=== PATIENT | male | born 1960 | race Caucasian/White ===

== ENCOUNTER 2019-04-25 09:12 | Observation (INO) | payer BC, SELFPAY ==
[2019-04-25] VITALS (11 sets, daily range): BP systolic 125–156; BP diastolic 78–92; PULSE 88–122; RESP 15–24; TEMP 36.1–37.6; O2SAT 94–97; BMI 35.6; BMI 34.7
--- NOTE | 2019-04-25 09:39 | RAD_ITS ---
STUDY: X-RAY CHEST REASON FOR EXAM: Male, 59 years old. COUGH, HEMOPTYSIS. 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 COMPARISON: Comparison is made with prior examination dated October 03, 2016. FINDINGS: EKG electrodes are seen. There now is evidence of prior patchy infiltrates in the right upper and right lower lobes. Radiographic follow-up is recommended. Mild increased markings at the left lung base. There is no demonstrated pleural abnormality. Normal size heart. Normal mediastinum and kezia. Normal visualized pulmonary arteries. There is atherosclerotic calcification of the aortic arch with tortuosity. There are diffuse degenerative changes of the visualized thoracic spine. Healed right rib fractures. There is no demonstrated abnormality of the visualized soft tissue structures of the upper abdomen. RAD/Chest PA and Lateral IMPRESSION: Infiltrations in the right upper and right lower lobes. Mild increased markings at the left lung base. Follow-up is recommended. Electronically Signed: Sam Thakur, at 11:06 EST , Service support ,
--- NOTE | 2019-04-25 09:45 | ED.VIS.GEN ---
History of Present Illness Chief Complaint: Cough Informant: Patient, Significant Other Narrative: Patient presents the emergency department with fever cough and hemoptysis. He is on Xarelto for atrial fibrillation. He has not had his morning metoprolol. Patient states that last evening he began to cough very frequently. He notes every few minutes he would cough. This morning around 0630 hours he noticed blood with his phlegm. This has persisted. states they took his temperature at 0830 and he was 102 degrees. He notes associated headache body aches and some rhinorrhea. Past Medical History - Allergies and Home Meds Allergies/Adverse Reactions: Allergies Penicillins Allergy (Verified 04/25/19 09:13) Hives piroxicam [From Feldene] Adverse Reaction (Verified 04/25/19 09:13) Nausea Primary Care Physician: [facility],[place] [Primary Care Provider] - Surgical History: no surgical history Smoking Status: Never smoker - Family History Maternal Family History: Reports: No pertinent history Paternal Family History: Reports: No pertinent history Review of Systems General: Reports: Chills, Fever, Malaise. Denies: Sweats Eyes: Denies: Visual changes - bilaterally, Diplopia ENT: Denies: Rhinorrhea, Sore throat Cardiovascular: Denies: Chest pain, Palpitations Respiratory: Reports: Dyspnea, Cough, Sputum - With blood. Denies: Dyspnea on exertion Gastrointestinal: Reports: Nausea. Denies: Abdominal pain, Vomiting, Diarrhea, Melena, Hematochezia Genitourinary: Denies: Dysuria, Hematuria, Frequency Musculoskeletal: Reports: Myalgias. Denies: Back pain, Extremity Pain Skin: Denies: Rash, Wounds Neurological: Denies: Headache, Weakness, Numbness Psych: Denies: Depression, Anxiety, Suicidal thoughts, Suicidal ideations Endocrine: Reports: Polyuria. Denies: Polydipsia, Heat intolerance, Cold intolerance Hematologic: Reports: Easy bruising, Easy bleeding Physical Exam Vital Signs/Narrative: Vital Signs Temp Pulse Resp BP Pulse Ox 04/25/19 09:15 97 F L 118 H 15 156/88 H 95 Inital Vital Signs reviewed: Yes General: Well nourished, Well developed, No Acute Distress Head: Normocephalic, Atraumatic Eyes: Perrl, EOMI ENT: Moist mucous membranes, No rhinorrhea Neck: Supple, Nontender Cardiovascular: No murmurs, Irregular, Tachycardia Respiratory: No distress, Chest nontender, Rhonchi - Right base, Wheezing Abdomen: Soft, Nontender, Nondistended, Normal bowel sounds Back: Nontender, Normal Inspection Extremities: Nontender, No edema Skin: Normal color, No rash Neurological: Alert, Oriented x3, Cranial nerves II-XII grossly intact, Normal Strength, Normal Sensation Psychological: Normal affect, Normal Mood Diagnostic/Tx/Re-eval - Medical Decision Making Patient received IV fluids, Tylenol, and aerosols. Chest x-ray demonstrates right sided infiltrates. His white count is elevated at 12. After blood cultures were obtained the patient received Rocephin and azithromycin. Patient did expectorate phlegm with some blood. Plan will be admission into the hospital for further care. Patient understands the plan. ED Disposition - Plan for ED Patient: Disposition: Acute Care Hospital [facility] Diagnosis: Pneumonia, Sepsis, Cough with hemoptysis [place] [facility] [[place] [facility] [place]] -
[2019-04-25 09:54] LABS: Absolute Lymphocyte Count 0.72 X10^3/uL (0.83-4.51); Absolute Neutrophil Count 10.5 X10^3/uL (2.0-7.7); Basophil# 0.07 X10^3/uL; Basophil% 0.6 % (0-1); Eosinophil# 0.06 X10^3/uL; Eosinophils% 0.5 % (0-5); Hematocrit 44.4 % (40-54); Hemoglobin 15.4 g/dL (13.0-16.5); Lymphocyte # 0.72 X10^3/ul (4.0); Mean Corp Hgb Conc 34.7 g/dL (32-36); Mean Corpuscular Hgb 30.3 pg (27.0-32.0); Mean Corpuscular Volume 87.4 fL (80-94); Mean Platelet Vol. 9.6 fl (6.2-12.0); Monocyte# 0.55 X10^3/uL; Monocyte% 4.6 % (0-10); NRBC Flagged by Analyzer 0 % (0-5); Neutrophil # 10.53 X10^3/uL (2.7-7.7); Platelet Count 165 K/mm3 (150-450); RBC Distribution Width CV 12.3 % (11.6-14.6); RBC Distribution Width SD 39.4 fl (35.1-43.9); Red Blood Count 5.08 M/mm3 (4.6-6.2)
[2019-04-25] MEDS: Acetaminophen 500 MG Tablet 1000 MG PO (09:57)
[2019-04-25] MEDS: Ondansetron 4 MG/2 ML Vial IV (09:58)
[2019-04-25] MEDS: Metoprolol Tartrate 25 MG Tablet PO ×2 (09:58→23:22)
[2019-04-25] MEDS: 0.9% Normal Saline 1,000 ML 1000 ML IV (09:58)
[2019-04-25 10:09] LABS: ALB/GLOB Ratio 1.1 RATIO (0.9-2.4); AST(SGOT) 18 U/L (15-37); Alanine Aminotransfer ALT/SGPT 36 U/L (16-61); Albumin, Serum 3.7 g/dL (3.2-5.0); Alkaline Phosphatase 39 U/L (45-117); Anion Gap 3 (5-15); BUN 13 mg/dL (7-18); BUN/Creat Ratio 11.7 RATIO (10-20); Calcium,Total 9.2 mg/dL (8.5-10.1); Chloride 109 mmol/L (98-107); Creatinine, Serum 1.11 mg/dL (0.70-1.30); EST Glomerular Filtration Rate 72 mL/min (>60); Est Glom Filt Rate - Afr Amer 87 mL/min (>60); Estimated Creatinine Clearance 79.62 ml/min; Globulin 3.3 g/dL (2.2-4.2); Glucose 193 mg/dL (74-106); Potassium 4.2 mmol/L (3.5-5.1); Sodium Level 139 mmol/L (136-145)
[2019-04-25] MEDS: Ipratropium/Albuterol Sulfate 3 ML AMPUL.NEB INHALATION ×3 (10:10→22:39)
[2019-04-25] MEDS: Albuterol 2.5 MG/3 ML VIAL.NEB. INHALATION ×2 (11:03)
--- NOTE | 2019-04-25 11:10 | NURSING ---
CALLED [facility] TO LET THEM KNOW PATIENT WILL BE ADMITTED. TALKED TO OFELIA IN THE TRANSFER LINE. SHE TOOK INFO AND ASKED ABOUT FLOOR HE WILL BE ADMITTED TO. WAS TOLD NOT SURE AT THIS TIME.
[2019-04-25] MEDS: Ceftriaxone 1 GM/50 ML BAG IV (11:20)
[2019-04-25 11:43] LABS: Lactic Acid 1.3 mmol/L (0.4-1.9)
[2019-04-25 11:47] LABS: International Normalized Ratio 1.5; Prothrombin Time (Protime)PT. 17.7 SECONDS (11.7-14.9)
--- NOTE | 2019-04-25 11:54 | NURSING ---
MED SURG JOPPERI PNEUMONIA
--- NOTE | 2019-04-25 12:02 | NURSING ---
Dr. Emanuel in ED
--- NOTE | 2019-04-25 12:20 | HP.PCM_ITS ---
Problem List (1) Pneumonia Status: Acute (2) Cough with hemoptysis Status: Acute (3) Hyperlipidemia Status: Chronic (4) Type 2 diabetes mellitus Status: Chronic (5) Hypertension Status: Chronic (6) Afib Status: Chronic History of Present Illness Date of Admission: 04/25/19 Chief Complaint: shortness of breath The patient is a 59 year old M who was in his normal state of health until last night, when he started coughing. Today he went to work and felt off, shortness of breath, coughing, weakness. Sent to ER and diagnosed with pneumonia and received azithromycin and ceftriaxone. [] Past Medical History Past Medical History (Chronic Problems): Chronic Problems (This Medical Record has been edited. Action required.) Afib (Chronic) Hyperlipidemia (Chronic) Type 2 diabetes mellitus (Chronic) Hypertension (Chronic) Allergies Penicillins Allergy (Verified 04/25/19 09:13) Hives piroxicam [From Feldene] Adverse Reaction (Verified 04/25/19 09:13) Nausea Home Medications: Ambulatory Orders Medication Instructions Recorded Glimepiride [Amaryl] 2 mg PO BID 10/03/16 Insulin Glargine,Hum.rec.anlog 40 unit SQ DAILY 10/03/16 [Lantus] Metformin HCl 1,000 mg PO DAILY 10/03/16 Methocarbamol [Robaxin] 500 mg PO PRN PRN 10/03/16 Metoprolol Tartrate 25 mg PO BID 10/03/16 Simvastatin 40 mg PO QHS 10/03/16 Losartan Potassium [Cozaar] 25 mg PO DAILY 04/25/19 Xarelto 15 mg PO QHS 04/25/19 Surgical History: no surgical history Psychiatric History: No pertinent psych hx Smoking Status: Never smoker Tobacco Use: Chew - *Family History Maternal History Items: No pertinent history Paternal History Items: No pertinent history Review of Systems Constitutional: Reports: Fever, Malaise, Weakness. Denies: Anorexia, Chills, Night Sweats Eyes: Denies: Blurred vision, Double vision HEENT: Denies: Head Aches, Sinus Congestion, Sinus Drainage Cardiovascular: Denies: Chest Pain, Palpitations Respiratory: Reports: Cough. Denies: Shortness of breath at rest, Sputum production Gastrointestinal: Denies: Abdominal Pain, Nausea, Vomiting Genitourinary: Denies: Dysuria Musculoskeletal: Denies: Joint Pain, Joint Tenderness Skin: Denies: Rash, Wounds Neurological: Denies: Numbness, Tingling, Focal weakness Psychiatric: Denies: Anxiety, Depression Hematologic/ Lymphatic: Denies: Easy Bruising, Easy Bleeding, Hx of blood clot Comment: all review of systems negative except as mentioned above. VTE Information - Inpt Only VTE Present on Admission: No VTE Mechan Device Prophylaxis: SCD's VTE Pharm Prophylaxis ordered?: No Patient Problems: Active and Suspected Problems (This Medical Record has been edited. Action required.) Pneumonia (Acute) Cough with hemoptysis (Acute) - Physical Exam Vitals/I&O's: Vital Signs Temp Pulse Resp BP Pulse Ox 36.9 C 113 H 18 152/92 H 94 04/25/19 11:21 04/25/19 11:21 04/25/19 11:21 04/25/19 11:21 04/25/19 11:21 Oxygen Delivery Method Room Air Weight: 119.295 kg Body Mass Index (BMI) 35.6 Intake and Output for Last 24 Hours 04/23/19 04/24/19 04/25/19 23:59 23:59 23:59 Intake Total 50 / 50 Balance 50 / 50 General: Alert, Cooperative, No apparent distress HEENT: Atraumatic, Normocephalic Oral: Moist Mucosa, No Gingival or Mucosal Lesions/ Ulcerations Neck: No Nodes, Trachea Midline Lungs: - - fine crackles in right lung field Cardiovascular: Regular rate, Regular Rhythm, Normal S1, Normal S2, No murmurs Abdomen: Bowel Sounds Present, Soft, Non Tender, Non-Distended, No Hepato- splenomegaly Extremities: No edema, No Calf Tenderness Skin: No rashes, No breakdown Musculoskeletal: No Tenderness to Palpation of Joints or Extremities, No Muscle Wasting Neurological: Sensory exam intact to light touch and pain, - - no clonus Psych/Mental Status: Normal Affect, Appropriate Microbiology Past 72 Hours 04/25/19 10:10 Mucosa - Nose Influenza Types A,B Direct FA (CAROLE) - Final Laboratory Results 04/25/19 09:45: WBC 12.0 H, RBC 5.08, Hgb 15.4, Hct 44.4, MCV 87.4, MCH 30.3, MCHC 34.7, RDW Std Deviation 39.4, RDW Coeff of Keshia 12.3, Plt Count 165, MPV 9.6, Immature Gran % (Auto) 0.300, Neut % (Auto) 88.0 H, Lymph % (Auto) 6.0 L, [place] % (Auto) 4.6, Eos % (Auto) 0.5, Baso % (Auto) 0.6, Absolute Neuts (auto) 10.5 H, Absolute Lymphs (auto) 0.72 L, Nucleated RBC % 0 04/25/19 09:45: Sodium 139, Potassium 4.2, Chloride 109 H, Carbon Dioxide 27.0, Anion Gap 3 L, BUN 13, Creatinine 1.11, Estim Creat Clear Calc 79.62, Est GFR (MDRD) Af Amer 87, Est GFR (MDRD) Non-Af 72, BUN/Creatinine Ratio 11.7, Glucose 193 H, Calcium 9.2, Total Bilirubin 1.30 H, AST 18, ALT 36, Alkaline Phosphatase 39 L, Total Protein 7.0, Albumin 3.7, Globulin 3.3, Albumin/Globulin Ratio 1.1 04/25/19 09:45: Troponin I < 0.015 04/25/19 11:05: Lactic Acid 1.3 04/25/19 11:30: PT 17.7 H, INR 1.5, APTT 35.0 CXR reviewed: right sided diffuse infiltrate. Assessment/Plan All Active Problems (This Medical Record has been edited. Action required.) Pneumonia (Acute) Cough with hemoptysis (Acute) 1. pneumonia: * presumed pneumococcal * check urinary antigens, sputum cultures * continue azithromycin and ceftriaxone * pulmonary toilet * only met 1/4 SIRS criteria, therefore patient is not septic. 2. hemoptysis * 2/2 pneumonia and rivaroxaban * monitor 3. afib: * hold rivaroxaban given hemoptysis as risks > benefits * continue metoprolol 4. DM2 * continue glimepiride and metformin * ssi * check a1c. 5. VTE prophylaxis: SCDs 6. ACP: DW patient. He wishes to be full code. Code Visit Inpatient E&M: 26339 Init Hosp L3
[2019-04-25 14:00] LABS: Hemoglobin A1c 8.5 % (4.2-6.3)
[2019-04-25] MEDS: Ceftriaxone 1 GM/50 mL Premix x1 IV (14:42)
[2019-04-25 14:50] LABS: Bedside Glucose 140 mg/dL (70-110)
--- NOTE | 2019-04-25 15:03 | CASEMGMT ---
JOANIE SHI Assessment DX: pneumonia Intro role of CM to patient room. Pt is awake, alert and able to participate in assessment. PCP/Demographics verified. Pt states he is independent @ home and plans to return on discharge. Pt has [place] benefits; goes to [facility] clinic. Clinical and Declination to transfer form was faxed to [place] Transfer Line. PCP: [facility], [place] Pharmacy: [facility] Insurance: [place] benefits Prescription benefits: yes LNOK: Living arrangements: pt states he lives independently. No care needs identified. Transportation: drives DME: none DC Plan: home on discharge. JOANIE SHI let pt know to contact cm if concerns re: dc arise. Oly COURTNEY RN ACM
[2019-04-25] MEDS: Glimepiride 2 MG Tablet PO (17:02)
[2019-04-25] MEDS: Insulin Lispro 100 UNIT/ML INSULN.PEN SC (17:04)
[2019-04-25 17:11] LABS: Bedside Glucose 152 mg/dL (70-110)
[2019-04-25] MEDS: guaiFENesin 1,200 MG Tablet 1200 MG PO (23:22)
[2019-04-25] MEDS: Atorvastatin Calcium 20 MG Tablet PO (23:22)
[2019-04-25 23:56] LABS: Bedside Glucose 164 mg/dL (70-110)
[2019-04-26] MEDS: Ipratropium/Albuterol Sulfate 3 ML AMPUL.NEB INHALATION ×3 (03:06→11:24)
[2019-04-26 03:08] VITALS: PULSE 105; RESP 24
[2019-04-26 06:48] LABS: Absolute Lymphocyte Count 1.59 X10^3/uL (0.83-4.51); Basophil# 0.07 X10^3/uL; Basophil% 0.5 % (0-1); Eosinophils% 0.7 % (0-5); Hemoglobin 14.4 g/dL (13.0-16.5); Lymphocyte # 1.59 X10^3/ul (4.0); Lymphocyte % 11.6 % (19-41); Mean Corp Hgb Conc 33.5 g/dL (32-36); Mean Corpuscular Hgb 30.1 pg (27.0-32.0); Mean Corpuscular Volume 89.8 fL (80-94); Monocyte# 0.85 X10^3/uL; Monocyte% 6.2 % (0-10); NRBC Flagged by Analyzer 0 % (0-5); Neutrophil % 80.5 % (47-70); Platelet Count 137 K/mm3 (150-450); RBC Distribution Width CV 12.6 % (11.6-14.6); RBC Distribution Width SD 41.1 fl (35.1-43.9); Red Blood Count 4.79 M/mm3 (4.6-6.2); White Blood Count 13.7 K/mm3 (4.4-11.0)
[2019-04-26 06:57] VITALS: PULSE 88; RESP 18
[2019-04-26 07:02] VITALS: BP 150/91; PULSE 93; RESP 24; TEMP 36.9; O2SAT 99
[2019-04-26 07:06] LABS: Bedside Glucose 138 mg/dL (70-110)
[2019-04-26 07:07] LABS: Anion Gap 4 (5-15); BUN 16 mg/dL (7-18); BUN/Creat Ratio 14.7 RATIO (10-20); Calcium,Total 8.9 mg/dL (8.5-10.1); Chloride 110 mmol/L (98-107); Creatinine, Serum 1.09 mg/dL (0.70-1.30); EST Glomerular Filtration Rate 74 mL/min (>60); Est Glom Filt Rate - Afr Amer 89 mL/min (>60); Estimated Creatinine Clearance 81.08 ml/min; Glucose 136 mg/dL (74-106); Potassium 3.8 mmol/L (3.5-5.1); Sodium Level 141 mmol/L (136-145)
[2019-04-26] MEDS: Glimepiride 2 MG Tablet PO (08:27)
[2019-04-26] MEDS: Acetaminophen 325 MG Tablet 650 MG PO (08:27)
[2019-04-26] MEDS: 0.9% Saline Lock 10 ML Syringe IV (09:31)
[2019-04-26 09:34] VITALS: PULSE 96
[2019-04-26] MEDS: Metoprolol Tartrate 25 MG Tablet PO (09:34)
[2019-04-26] MEDS: guaiFENesin 1,200 MG Tablet 1200 MG PO (09:34)
[2019-04-26] MEDS: Losartan Potassium 25 MG Tablet PO (09:35)
[2019-04-26 11:24] VITALS: PULSE 89; RESP 16
--- NOTE | 2019-04-26 11:30 | DCINST_ITS ---
- Discharge Diagnoses Current Active Problems: Current Active and Chronic Problems (This Medical Record has been edited. Action required.) Pneumonia (Acute) Cough with hemoptysis (Acute) Afib (Chronic) Sepsis (Acute) You will use the following diet at home:: No restrictions Your food should be the consistency of: Regular Your liquids should be the consistency of: Regular/Thin Discharge Activity: Return to Normal Activity Call your doctor if you observe: Fever of 101 or Higher, Shortness of breath, - - coughing up blood. Allergies/Adverse Reactions: Allergies Penicillins Allergy (Verified 04/25/19 09:13) Hives piroxicam [From Feldene] Adverse Reaction (Verified 04/25/19 09:13) Nausea Medications to take at Discharge Glimepiride [Amaryl] 2 mg PO BID 10/03/16 Insulin Glargine,Hum.rec.anlog [Lantus] 40 unit SQ DAILY 10/03/16 Metformin HCl 1,000 mg PO DAILY 10/03/16 Methocarbamol [Robaxin] 500 mg PO QMONTH PRN 10/03/16 Metoprolol Tartrate 25 mg PO BID 10/03/16 Simvastatin 40 mg PO QHS 10/03/16 Losartan Potassium [Cozaar] 25 mg PO DAILY 04/25/19 Pantoprazole Sodium [Protonix] 20 mg PO DAILY 04/25/19 Guaifenesin [Mucinex] 1,200 mg PO BID #10 tab 04/26/19 Levofloxacin [Levaquin] 750 mg PO DAILY #5 tab 04/26/19 Xarelto 15 mg PO QHS #0 04/26/19 The following prescriptions were given: Levofloxacin [Levaquin] 750 mg PO DAILY #5 tab Transmission Status: Pending to [id number] Guaifenesin [Mucinex] 1,200 mg PO BID #10 tab Transmission Status: Pending to [id number] Primary Care Physician: [facility] [Primary Care Provider] - Within 1 Week Test Results: Test results from this visit will be discussed in further detail at your follow- up appointment, if applicable. Proposed Discharge Date: 04/26/19
--- NOTE | 2019-04-26 11:31 | DS.PCM_ITS ---
Discharge Date and Diagnosis - Problem List Patient Problems: Active and Suspected Problems (This Medical Record has been edited. Action required.) Pneumonia (Acute) Cough with hemoptysis (Acute) Sepsis (Acute) Date of Admission: 04/25/19 Date of Discharge: 04/26/19 - Primary Discharge Diagnosis Active and Suspected Problems (This Medical Record has been edited. Action required.) Pneumonia (Acute) Cough with hemoptysis (Acute) Sepsis (Acute) - Secondary Discharge Diagnosis Chronic Problems (This Medical Record has been edited. Action required.) Afib (Chronic) Hyperlipidemia (Chronic) Type 2 diabetes mellitus (Chronic) Hypertension (Chronic) Hospital Course and Treatment Imaging Results: Clinical Impression(s) from Imaging Studies Chest X-Ray 04/25/19 09:39 IMPRESSION: Infiltrations in the right upper and right lower lobes. Mild increased markings at the left lung base. Follow-up is recommended. Electronically Signed: Sam Blaze, at 11:06 EST , Service support , Operations: None Procedures: None Summary of Care Provided: The patient is a 59 year old M presents with coughing, shortness of breath and hemoptysis. Patient was found to have pneumonia. Patient was started on azithromycin as well as ceftriaxone in the emergency room. Patient's as rivaroxaban was held. Patient had some scant dried blood that he coughed up today but otherwise is feeling better. Discussed with the patient about going home versus being observed for another day. Patient preserved prefers to be discharged to home. Patient advised to hold off on his rivaroxaban for 2 more days and then to resume. Patient be discharged with levofloxacin. The hemoptysis was felt to be due to the pneumonia but also being on rivaroxaban. [] Patient Problems: Active and Suspected Problems (This Medical Record has been edited. Action required.) Pneumonia (Acute) Cough with hemoptysis (Acute) Sepsis (Acute) - Physical Exam Vitals/I&O's: Vital Signs Temp Pulse Resp BP Pulse Ox 36.9 C 96 24 H 150/91 H 99 04/26/19 07:02 04/26/19 09:34 04/26/19 07:02 04/26/19 07:02 04/26/19 07:02 Oxygen Delivery Method Room Air Weight: 116.165 kg Body Mass Index (BMI) 34.7 Intake and Output for Last 24 Hours 04/24/19 04/25/19 04/26/19 23:59 23:59 23:59 Intake Total 1595 / 1845 300 / 300 Balance 1595 / 1845 300 / 300 General: Alert, No apparent distress HEENT: Atraumatic, Normocephalic Oral: Moist Mucosa, No Gingival or Mucosal Lesions/ Ulcerations Neck: No Nodes, Thyroid Normal Size and Texture Lungs: Clear to auscultation, Normal air movement, No rhonchi, No wheeze, No rales Cardiovascular: Regular rate, Regular Rhythm, Normal S1, Normal S2, No murmurs Microbiology Past 72 Hours 04/25/19 14:30 Urine, Clean Catch Streptococcus pneumoniae Antigen (M - Final 04/25/19 14:30 Urine, Clean Catch Legionella Antigen - Final 04/25/19 10:10 Mucosa - Nose Influenza Types A,B Direct FA (CAROLE) - Final Laboratory Results 04/25/19 09:45: Troponin I < 0.015 04/25/19 09:45: Hemoglobin A1c 8.5 H 04/25/19 11:05: Lactic Acid 1.3 04/25/19 11:30: PT 17.7 H, INR 1.5, APTT 35.0 04/25/19 14:41: POC Glucose 140 H 04/25/19 17:01: POC Glucose 152 H 04/25/19 23:45: POC Glucose 164 H 04/26/19 06:14: WBC 13.7 H, RBC 4.79, Hgb 14.4, Hct 43.0, MCV 89.8, MCH 30.1, MCHC 33.5, RDW Std Deviation 41.1, RDW Coeff of Keshia 12.6, Plt Count 137 L, MPV 10.0, Immature Gran % (Auto) 0.500, Neut % (Auto) 80.5 H, Lymph % (Auto) 11.6 L, [place] % (Auto) 6.2, Eos % (Auto) 0.7, Baso % (Auto) 0.5, Absolute Neuts (auto) 11.0 H, Absolute Lymphs (auto) 1.59, Nucleated RBC % 0 04/26/19 06:14: Sodium 141, Potassium 3.8, Chloride 110 H, Carbon Dioxide 27.0, Anion Gap 4 L, BUN 16, Creatinine 1.09, Estim Creat Clear Calc 81.08, Est GFR (MDRD) Af Amer 89, Est GFR (MDRD) Non-Af 74, BUN/Creatinine Ratio 14.7, Glucose 136 H, Calcium 8.9 04/26/19 07:01: POC Glucose 138 H Current Medications Acetaminophen (Tylenol) 650 mg PO Q6H PRN PRN PRN Reason: Pain Score 1-10/Temp > 100.7 F Last Admin: 04/26/19 08:27 Dose: 650 mg Documented by: Albuterol Sulfate (Ventolin Aerosols) 2.5 mg INHALATION Q2H PRN PRN PRN Reason: Shortness of Breath/Wheezing Albuterol/Ipratropium (Duoneb) 3 ml INHALATION Q4H.RT [facility] Last Admin: 04/26/19 11:24 Dose: 3 ml Documented by: Atorvastatin Calcium (Lipitor) 20 mg PO QHS [facility] Last Admin: 04/25/19 23:22 Dose: 20 mg Documented by: [facility] (A[facility]l) [facility] Last Admin: 04/26/19 08:27 Dose: 2 mg Documented by: Glucagon () 1 mg IM .X1 PRN PRN Reason: Hypoglycemia Guaifenesin (Mucinex) 1,200 mg PO BID [facility] Last Admin: 04/26/19 09:34 Dose: 1,200 mg Documented by: Ceftriaxone Sodium 2 gm/ (Sodium Chloride) 50 mls @ 100 mls/hr IV Q24 [facility] Stop: 05/03/19 10:01 Last Admin: 04/26/19 09:30 Dose: 100 mls/hr Documented by: Azithromycin 500 mg/ Dextrose 255 mls @ 250 mls/hr IV Q24 [facility] Stop: 05/01/19 10:01 Last Admin: 04/26/19 10:05 Dose: 250 mls/hr Documented by: Dextrose (Dextrose 10%-Water) 250 mls @ 999 mls/hr IV .Q16M PRN; Protocol PRN Reason: HYPOGLYCEMIA Sodium Chloride () 250 mls @ 15 mls/hr IV .[id number] PRN PRN Reason: Saline Flush Sodium Chloride () 250 mls @ 15 mls/hr IV .[id number] PRN PRN Reason: Additional IVPB Infusion Insulin Glargine (Lantus (Bkc)) 40 units SC DAILY [facility] Last Admin: 04/26/19 09:35 Dose: 40 u Documented by: Insulin Human Lispro (Humalog Kwikpen (Bkc)) 0 unit SC TIDAC [facility]; Protocol Last Admin: 04/26/19 07:01 Dose: Not Given Documented by: Losartan Potassium (Cozaar) 25 mg PO DAILY [facility] Last Admin: 04/26/19 09:35 Dose: 25 mg Documented by: Methocarbamol (Robaxin) 500 mg PO DAILY PRN PRN PRN Reason: Pain Score 1-10/10 Metoprolol Tartrate (Lopressor (Beta Mayra)) 25 mg PO BID [facility] Last Admin: 04/26/19 09:34 Dose: 25 mg Documented by: Sodium Chloride () 10 - 40 ml IV UD PRN PRN Reason: SALINE FLUSH Last Admin: 04/26/19 09:31 Dose: 10 ml Documented by: Discharge Diet: No Restrictions Discharge Activity: Return to Normal Activity Call your doctor if you observe: Fever of 101 or Higher, Shortness of breath, - - coughing up blood. Home Medications: Medications to take at Discharge Glimepiride [Amaryl] 2 mg PO BID 10/03/16 Insulin Glargine,Hum.rec.anlog [Lantus] 40 unit SQ DAILY 10/03/16 Metformin HCl 1,000 mg PO DAILY 10/03/16 Methocarbamol [Robaxin] 500 mg PO QMONTH PRN 10/03/16 Metoprolol Tartrate 25 mg PO BID 10/03/16 Simvastatin 40 mg PO QHS 10/03/16 Losartan Potassium [Cozaar] 25 mg PO DAILY 04/25/19 Pantoprazole Sodium [Protonix] 20 mg PO DAILY 04/25/19 Guaifenesin [Mucinex] 1,200 mg PO BID #10 tab 04/26/19 Levofloxacin [Levaquin] 750 mg PO DAILY #5 tab 04/26/19 Xarelto 15 mg PO QHS #0 04/26/19 Following Prescrptions Were Given to Patient: Levofloxacin [Levaquin] 750 mg PO DAILY #5 tab Transmission Status: Pending to [facility]/pharmacy #[id number] Guaifenesin [Mucinex] 1,200 mg PO BID #10 tab Transmission Status: [id number] [Primary [facility] Provider] - Within 1 Week Disposition: Home Minutes spent on discharge:: 28 Patient Condition:: Good Medical Necessity - Tobacco Use Smoking Status: Never smoker Tobacco Use: Chew Meaningful Use Info Meaningful Use Diagnoses (Choose all that apply): None applicable Code Visit Inpatient E&M: 48290 Disch Hosp
--- NOTE | 2019-04-26 11:34 | PCM.WORK.EX ---
Work/School Excuse Work/School Excuse for:: Patient Please excuse this person from:: Work From: 04/25/19 through: 04/26/19 Restrictions: Other - may return to normal duties on 04/28/2019
[2019-04-26 12:20] LABS: Bedside Glucose 282 mg/dL (70-110)
[2019-04-26] MEDS: Insulin Lispro 100 UNIT/ML INSULN.PEN SC (12:20)
[2019-04-26 13:36] VITALS: BP 131/90; PULSE 98; PULSE 99; RESP 16; RESP 18; TEMP 36.8; O2SAT 98
[2019-04-26] MEDS: Albuterol 2.5 MG/3 ML VIAL.NEB. INHALATION (13:36)
== END 2019-04-26 13:49 | disposition home or self-care (01) | DRG 194 ==
LOC: ED 11:13 → MS3 06-19 15:53
PROVIDERS: Emergency Provider Emergency Medicine
DX: J18.9 Pneumonia, unspecified organism (principal); R04.2 Hemoptysis; D68.32 Hemorrhagic disorder due to extrinsic circulating anticoagulants; E11.9 Type 2 diabetes mellitus without complications; T45.515A Adverse effect of anticoagulants, initial encounter; E78.5 Hyperlipidemia, unspecified; I10 Essential (primary) hypertension; Z79.4 Long term (current) use of insulin; I48.20 Chronic atrial fibrillation, unspecified; Z79.899 Other long term (current) drug therapy; Z79.01 Long term (current) use of anticoagulants
CPT/HCPCS: 36415; 71046; 80048; 80053; 82962; 83036; 83605; 84484; 85025; 85610; 85730; 87040; 87070; 87205; 87449; 87804; 94640; 96361; 96365; 96366; 96367; 96375; 99218; 99285; J7030; A4216; G0378; J0696; J2405

== ENCOUNTER 2020-08-01 14:56 | Emergency (ER) | payer BC, SELFPAY ==
[2019-04-25 13:14] VITALS: BMI 34.7
[2020-08-01 14:56] VITALS: BP 156/92; PULSE 129; RESP 16; TEMP 36.8; O2SAT 96; BMI 34.4
--- NOTE | 2020-08-01 15:24 | CT_ITS ---
EXAM: CT ABDOMEN AND PELVIS WITH INTRAVENOUS CONTRAST CLINICAL INDICATION: Nausea for 2 weeks with rectal pain, dizziness TECHNIQUE: Helically acquired images were obtained of the abdomen and pelvis with intravenous contrast. This CT exam was performed using one or more of the following dose reduction techniques: automated exposure control, adjustment of the mA and/or kV according to patient size, and/or use of iterative reconstruction technique. This report was created using [employer] report generation technology. Oral contrast was administered. Coronal and sagittal reformatted images were created and reviewed. CONTRAST: 100mL Isovue-370 COMPARISON: None. FINDINGS: LOWER THORAX: Patchy localized infiltrate involving the bilateral lower lobes. Although nonspecific (and not completely evaluated), pneumonia including COVID type should be considered. No cardiomegaly. No significant pericardial effusion. ABDOMEN: LIVER: Unremarkable. Homogeneous. No focal mass. GALLBLADDER AND BILE DUCTS: Unremarkable. No calcified gallstones. No gallbladder distention or wall edema. No intra- or extrahepatic biliary ductal dilation. PANCREAS: Unremarkable. No focal cystic or solid mass. SPLEEN: Granulomatous calcifications of the spleen. ADRENALS: Unremarkable. No nodules. KIDNEYS AND URETERS: Unremarkable. Normal renal size and position. No hydronephrosis. STOMACH AND BOWEL: Unremarkable. No stomach or bowel distention. No focal inflammatory change. PELVIS: APPENDIX: No evidence of acute appendicitis. BLADDER: Nondistended urinary bladder. REPRODUCTIVE: Vas deferens calcifications associated with diabetes mellitus. ABDOMEN and PELVIS: INTRAPERITONEAL SPACE: Unremarkable. No ascites or other fluid collection. No free air. BONES/JOINTS: Degenerative changes of the lumbar spine. No suspicious lytic or blastic abnormality. SOFT TISSUES: Unremarkable. No discrete abdominal or pelvic wall hernia. VASCULATURE: Atherosclerosis of the abdominal aorta and iliac arteries. Abdominal aorta is non-dilated. LYMPH NODES: Calcified lymph nodes in the bilateral kezia. CT/Abdomen/Pelvis WITH Contrast IMPRESSION: 1. No acute inflammatory process or bowel obstruction within the abdomen/pelvis. 2. Patchy localized infiltrate involving the bilateral lower lobes. Although nonspecific (and not completely evaluated), pneumonia including COVID type should be considered. Electronically Signed: Param Henley MD (Brooks) at 17:13 EDT , Service support ,
--- NOTE | 2020-08-01 15:25 | EX.ED.DYSGE1 ---
HPI History of Present Illness Chief Complaint: General Illness Detail of Chief Complaint: Patient with rectal pain for for 5 days Informant: patient Narrative Narrative: Patient complains of pain in his rectum for for 5 days. He denies any masses. He denies any blood in his stool or black tarry stool. Patient had a fever up to 1016 yesterday. Patient also is been having intermittent headaches for several weeks as well as bilateral ear pain. Patient is a diabetic. Patient denies any falls or head injuries. Patient states that somebody next to him at work tested positive for Covid recently. He has minimal cough. He denies body aches. Patient denies urinary symptoms. [facility] Medical History (Updated 08/01/20 @ 18:[address] Shawn Lynn, ) Atrial fibrillation COPD (chronic obstructive pulmonary disease) CPAP (continuous positive airway pressure) dependence Diabetes DVT (deep venous thrombosis) Hyperlipidemia Hypertension Kidney stones Sleep apnea Home Medications Lantus U-100 Insulin 40 unit SQ DAILY 10/03/16 [History Last Taken 10/02/16 23:00] glimepiride 2 mg PO BID 10/03/16 [History Last Taken 10/03/16 10:15] metformin 1,000 mg PO DAILY 10/03/16 [History Last Taken 10/03/16 10:15] methocarbamol 500 mg PO QMONTH PRN 10/03/16 [History Last Taken Unknown] metoprolol tartrate 25 mg PO BID 10/03/16 [History Last Taken 10/03/16 10:15] simvastatin 40 mg PO QHS 10/03/16 [History Last Taken 10/02/16 23:00] losartan 25 mg PO DAILY 04/25/19 [History Last Taken Unknown] pantoprazole 20 mg PO DAILY 04/25/19 [History Last Taken Unknown] Xarelto 15 mg PO QHS #0 04/26/19 [Rx Last Taken Unknown] guaifenesin 1,200 mg PO BID #10 tab 04/26/19 [Rx Last Taken Unknown] levofloxacin 750 mg PO DAILY #5 tab 04/26/19 [Rx Last Taken Unknown] Allergy/AdvReac Type Severity Reaction Status Date / Time Penicillins Allergy Hives Verified 04/25/19 09:13 piroxicam [From Feldene] AdvReac Nausea Verified 04/25/19 09:13 Social History (System 10/31/18 @ 15:00 by Yin Glass) Smoking Status: Never smoker ROS ROS ED Constitutional Constitutional ED: Reports systems reviewed and no addt'l complaints, except as documented; Denies body ache(s), change in weight or chills Eyes Eyes: Denies acute decrease in peripheral vision, change in vision, double vision or loss of vision ENT ENT ED: Reports none and ear pain; Denies lip swelling, loss taste/smell, neck pain, otalgia or sore throat Cardiovascular Cardiovascular: Reports none; Denies abdominal pain, chest pain with activity, leg edema, lightheadedness, palpitations, rapid heart rate or syncope Respiratory/Chest Respiratory/Chest: Reports none; Denies change in mental status, dry cough, dyspnea, hemoptysis, shortness of breath at rest or shortness of breath with exertion Gastrointestinal Gastrointestinal: Reports none, abdominal pain, nausea and other Details: Rectal pain ; Denies change in stool character, diarrhea, hematemesis, hematochezia, melena, rectal bleeding or vomiting Genitourinary Genitourinary ED: Reports none; Denies abdominal discomfort, anuria, dysuria, genital pain or polyuria Musculoskeletal Musculoskeletal: Reports none; Denies arthralgias, back pain, difficulty walking, extremity pain, muscle weakness or myalgias Integumentary Reports none; Denies abscess or rash Neurologic Neurologic: Reports none and headache(s); Denies abnormal gait, confusion, focal weakness, frequent falls, loss of vision, numbness, paresthesias, radicular pain, vertigo or weakness Psychiatric Psychiatric: Reports systems reviewed and no addt'l complaints, except as documented and none; Denies behavioral changes, confusion, difficulty concentrating, hallucinations, suicidal ideation, tactile hallucinations or visual hallucinations Endocrine Endocrinology: Denies none, cold intolerance, excessive sweating, fatigue or heat intolerance Hematologic/Lymphatic Hematologic/Lymphatic: Reports none; Denies anemia, easy bleeding or easy bruising Allergic/Immunologic Allergic/Immunologic ED: Denies as per HPI, none, lip swelling, mouth swelling, throat swelling, tongue swelling or hives EXAM Physical Exam Const Vital Signs: 08/01/20 14:56 08/01/20 16:09 08/01/20 17:12 Temperature 98.2 F Temperature Source Temporal Pulse Rate 129 H 117 H Respiratory Rate 16 26 H Respiratory Effort Normal Non-Labored Respiratory Pattern Normal Blood Pressure 156/92 H 176/84 H Blood Pressure Mean 113 114 Pulse Ox 96 93 Oxygen Delivery Method Room Air Room Air Positive well nourished and well developed General Appearance ED: well developed and NAD HEENT Reports TM's clear and moist mucous membranes normocephalic and atraumatic; Negative for trauma or tenderness Tympanic Membrane ED: Yes TM's clear Eyes PERRL and EOMs intact bilaterally General Eye ED: Negative for pale conjunctiva or scleral icterus Neck no lymphadenopathy, supple and no JVD General: Negative for tenderness Chest Wall inspection of chest normal and palpation of chest normal Chest: Negative for tenderness Resp normal respiratory effort and clear to auscultation bilaterally Effort and Inspection: Negative for respiratory distress or pain with movement Auscultation: Negative for rhonchi, wheezes or diminished lung sounds Cardio regular rate, regular rhythm, S1 normal heart sound, S2 normal heart sound and no murmurs Peripheral Pulses: pulses 2+ throughout GI normal to inspection, nondistended, normoactive bowel sounds, soft to palpation, non-tender, non-distended and no masses GI Narrative: Patient with mild diffuse abdominal tenderness especially over the suprapubic region. No rebound, rigidity, or peritoneal signs. Rectal exam performed I do not appreciate any masses or fissures. He had brown stool in the rectal vault. Palpation: tender Back/Spine no CVA tenderness and no thoracic nor lumbar tenderness Extremity normal to inspection General Extremety ED: Negative for edema General Extremity: Negative for edema Neuro oriented x3, CN's II-XII intact bilaterally, no sensory deficits noted and gait normal Sensorium / Orientation: awake, alert, oriented to person, oriented to place and oriented to time Motor Exam: strength 5/5 throughout and strength abnormal Psych mental status grossly normal Skin no rashes or lesions noted and no wounds MDM MDM MDM Narrative Medical decision making narrative: Patient's labs and imaging unremarkable. Etiology of his rectal pain is unclear. He is advised to follow-up with his primary care physician in potentially had make arrangements for colonoscopy. Patient was found to have COVID-19. He will be referred for monoclonal antibody infusion therapy. Patient advised to return if increasing shortness of breath or condition should worsen anyway. Lab Data Attestation: I reviewed the patient's lab results. Labs: Laboratory Results - last 24 hr 08/01/20 08/01/2008/01/21 16:00 16:00 16:00 WBC 5.6 RBC 5.48 Hgb 16.3 Hct 49.6 MCV 90.5 MCH 29.7 MCHC 32.9 RDW Std Deviation 41.8 RDW Coeff of [place] 12.6 Plt Count 129 L MPV 9.6 Immature Gran % (Auto) 0.400 Neut % (Auto) 74.3 H Lymph % (Auto) 18.0 L [place] % (Auto) 6.7 Eos % (Auto) 0.2 Baso % (Auto) 0.4 Absolute Neuts (auto) 4.1 Absolute Lymphs (auto) 1.00 Nucleated RBC % 0 Sodium 137 Potassium 3.9 Chloride 101 Carbon Dioxide 30.0 Anion Gap 6 BUN 12 Creatinine 1.11 Estim Creat Clear Calc 78.65 Est GFR (MDRD) Af Amer 87 Est GFR (MDRD) Non-Af 72 BUN/Creatinine Ratio 10.8 Glucose 156 H Lactic Acid 1.3 Calcium 8.9 Total Bilirubin 0.80 AST 21 ALT 29 Alkaline Phosphatase 36 L Total Protein 7.4 Albumin 3.5 Globulin 3.9 Albumin/Globulin Ratio 0.9 Urine Color Urine Clarity Urine pH Ur Specific [place] Urine Protein Urine Glucose (UA) Urine Ketones Urine Occult Blood Urine Nitrite Urine Bilirubin Urine Urobilinogen Ur Leukocyte Esterase Urine RBC Urine WBC Ur Squamous Epith Cells Urine Bacteria Urine Mucus 08/01/20 16:25 WBC RBC Hgb Hct MCV MCH MCHC RDW Std Deviation RDW Coeff of [place] Plt Count MPV Immature Gran % (Auto) Neut % (Auto) Lymph % (Auto) [place] % (Auto) Eos % (Auto) Baso % (Auto) Absolute Neuts (auto) Absolute Lymphs (auto) Nucleated RBC % Sodium Potassium Chloride Carbon Dioxide Anion Gap BUN Creatinine Estim Creat Clear Calc Est GFR (MDRD) Af Amer Est GFR (MDRD) Non-Af BUN/Creatinine Ratio Glucose Lactic Acid Calcium Total Bilirubin AST ALT Alkaline Phosphatase Total Protein Albumin Globulin Albumin/Globulin Ratio Urine Color Yellow Urine Clarity Sl. Cloudy Urine pH 5.0 Ur Specific [place] 1.020 Urine Protein 30 H Urine Glucose (UA) 100 H Urine Ketones Negative Urine Occult Blood 10 H Urine Nitrite Negative Urine Bilirubin Negative Urine Urobilinogen 1 H Ur Leukocyte Esterase Negative Urine RBC 0-5 SEEN Urine WBC 0 SEEN Ur Squamous Epith Cells 0-5 SEEN Urine Bacteria RARE Urine Mucus 0 SEEN Radiography Diagnostic Testing: Radiology Impression Abdomen/Pelvis CT 08/01/20 15:24 IMPRESSION: 1. No acute inflammatory process or bowel obstruction within the abdomen/pelvis. 2. Patchy localized infiltrate involving the bilateral lower lobes. Although nonspecific (and not completely evaluated), pneumonia including COVID type should be considered. Electronically Signed: Param Henley MD (Brooks) at 17:13 EDT , Service support , EKG Initial EKG: Comments: Atrial fibrillation with a ventricular rate of 113 bpm with no acute ST segment changes. Discharge Plan Triage Chief Complaint: General Illness ED Provider: Shawn Lynn Dx/Rx/DC Orders Clinical Impression: COVID-19 Instructions: Coronavirus Disease 2019 (COVID-19): Overview Prescriptions: No Action Lantus U-100 Insulin 100 UNIT/ML solution 40 unit SQ DAILY RF: 0 metoprolol tartrate 25 MG tablet 25 mg PO BID RF: 0 methocarbamol 500 MG tablet 500 mg PO QMONTH PRN (Reason: pain) RF: 0 metformin 500 MG tablet 1,000 mg PO DAILY RF: 0 simvastatin 40 MG tablet 40 mg PO QHS RF: 0 glimepiride 2 MG tablet 2 mg PO BID RF: 0 losartan 25 MG tablet 25 mg PO DAILY RF: 0 pantoprazole 20 MG tablet 20 mg PO DAILY RF: 0 guaifenesin 1,200 MG tablet 1,200 mg PO BID Qty: 10 RF: 0 levofloxacin 750 MG tablet 750 mg PO DAILY Qty: 5 RF: 0 Xarelto 15 mg PO QHS Qty: 0 RF: 0 [facility] Referrals: [facility] [Primary Care Provider] - 5-7 Days Disposition Disposition: Home, self care
[2020-08-01 16:22] LABS: Absolute Neutrophil Count 4.1 X10^3/uL (2.0-7.7); Basophil# 0.02 X10^3/uL; Basophil% 0.4 % (0-1); Eosinophil# 0.01 X10^3/uL; Eosinophils% 0.2 % (0-5); Hematocrit 49.6 % (40-54); Hemoglobin 16.3 g/dL (13.0-16.5); Mean Corp Hgb Conc 32.9 g/dL (32-36); Mean Corpuscular Hgb 29.7 pg (27.0-32.0); Mean Corpuscular Volume 90.5 fL (80-94); Mean Platelet Vol. 9.6 fl (6.2-12.0); Monocyte# 0.37 X10^3/uL; Monocyte% 6.7 % (0-10); NRBC Flagged by Analyzer 0 % (0-5); Neutrophil # 4.13 X10^3/uL (2.7-7.7); Neutrophil % 74.3 % (47-70); Platelet Count 129 K/mm3 (150-450); RBC Distribution Width CV 12.6 % (11.6-14.6); RBC Distribution Width SD 41.8 fl (35.1-43.9); Red Blood Count 5.48 M/mm3 (4.6-6.2); White Blood Count 5.6 K/mm3 (4.4-11.0)
[2020-08-01 16:30] LABS: Mucous, Urine 0 SEEN /hpf (<or=2+); White Blood Cells 0 SEEN /hpf (0-5)
[2020-08-01 16:31] LABS: Color, Urine Yellow (Yellow); Glucose, Dipstick 100 mg/dl (Normal); Ketone-Dipstick Negative (Negative); Leukocyte Esterase-Dipstick Negative /ul (Negative); Nitrite-Dipstick Negative (Negative); Occult Blood-Urine 10 /ul (Negative); Protein-Dipstick 30 mg/dl (Negative); Urine Bilirubin Dipstick Negative (Negative); Urine Clarity Sl. Cloudy (Clear); Urine Urobilinogen 1 mg/dl (Normal)
--- NOTE | 2020-08-01 16:33 | EKG12_ITS ---
Test Reason : TACHY Blood Pressure : / mmHG Vent. Rate : 113 BPM Atrial Rate : 147 BPM P-R Int : 000 ms QRS Dur : 078 ms QT Int : 336 ms P-R-T Axes : 000 009 -01 degrees QTc Int : 460 ms Atrial fibrillation Abnormal ECG Confirmed by ELY LEZAMA, BARBARA ([id number]), medical transcription editor ALYSSA PARRISH ([id number]) on 08/04/2020 12:47:07 PM Referred By: TATY Confirmed By:BARBARA GRAVES MD
[2020-08-01 16:37] LABS: Bacteria RARE /hpf (None Seen); Red Blood Cells-Urine 0-5 SEEN /hpf (0-5); Squamous Epithelial Cells - UA 0-5 SEEN /hpf (0-5)
[2020-08-01 16:40] LABS: ALB/GLOB Ratio 0.9 RATIO (0.9-2.4); AST(SGOT) 21 U/L (15-37); Alanine Aminotransfer ALT/SGPT 29 U/L (16-61); Albumin, Serum 3.5 g/dL (3.2-5.0); Alkaline Phosphatase 36 U/L (45-117); Anion Gap 6 (5-15); BUN 12 mg/dL (7-18); BUN/Creat Ratio 10.8 RATIO (10-20); Calcium,Total 8.9 mg/dL (8.5-10.1); Chloride 101 mmol/L (98-107); Creatinine, Serum 1.11 mg/dL (0.70-1.30); EST Glomerular Filtration Rate 72 mL/min (>60); Est Glom Filt Rate - Afr Amer 87 mL/min (>60); Estimated Creatinine Clearance 78.65 ml/min; Globulin 3.9 g/dL (2.2-4.2); Glucose 156 mg/dL (74-106); Potassium 3.9 mmol/L (3.5-5.1); Protein, Total 7.4 g/dL (6.4-8.2); Sodium Level 137 mmol/L (136-145)
[2020-08-01 16:43] LABS: Lactic Acid 1.3 mmol/L (0.4-1.9)
[2020-08-01] MEDS: Ondansetron 4 MG/2 ML Vial IV (16:43)
[2020-08-01 17:12] VITALS: BP 176/84; PULSE 117; RESP 26; O2SAT 93
[2020-08-01 18:27] VITALS: PULSE 105; RESP 18; O2SAT 95
== END 2020-08-01 18:32 | disposition home or self-care (01) ==
PROVIDERS: Emergency Provider Emergency Medicine
DX: U07.1 COVID-19 (principal); J44.9 Chronic obstructive pulmonary disease, unspecified; I48.91 Unspecified atrial fibrillation; I10 Essential (primary) hypertension; E11.9 Type 2 diabetes mellitus without complications; E78.5 Hyperlipidemia, unspecified; Z79.01 Long term (current) use of anticoagulants; Z79.4 Long term (current) use of insulin; Z79.899 Other long term (current) drug therapy
CPT/HCPCS: 74177; 80053; 81001; 83605; 85025; 87426; 93005; 96374; 99285; Q9967; A4216; J2405

== ENCOUNTER 2020-08-04 14:37 | Outpatient (CLI) | payer BC, SELFPAY ==
[2020-08-03 08:29] VITALS: BMI 34.4
[2020-08-04 14:49] VITALS: BP 108/80; PULSE 91; RESP 16; TEMP 37.7; O2SAT 99; BMI 34.3
[2020-08-04 15:17] VITALS: BP 145/81; PULSE 100; RESP 16; TEMP 37.7; O2SAT 97
[2020-08-04 15:50] VITALS: BP 132/99; PULSE 96; RESP 16; TEMP 38.7; O2SAT 96
[2020-08-04] MEDS: Acetaminophen 325 MG Tablet 650 MG PO (16:20)
[2020-08-04 16:22] VITALS: BP 145/106; PULSE 96; RESP 16; TEMP 38.8; O2SAT 95
[2020-08-04 16:46] VITALS: BP 144/86; PULSE 83; RESP 16; TEMP 37.7; O2SAT 96
[2020-08-04 17:38] VITALS: BP 149/91; PULSE 100; RESP 16; TEMP 38.2; O2SAT 97
== END 2020-08-04 17:35 | disposition home or self-care (01) ==
LOC: ICUOUT 14:37 → ICU 14:38
PROVIDERS: Referring Provider Nurse Practitioner Acute Care; Visit Provider Nurse Practitioner Acute Care
DX: U07.1 COVID-19 (principal)
CPT/HCPCS: J7050; M0243; Q0240

== ENCOUNTER 2020-08-05 10:22 | Emergency (ER) | payer BC, SELFPAY ==
[2020-08-04 14:49] VITALS: BMI 34.3
[2020-08-05 10:23] VITALS: BP 136/86; PULSE 96; RESP 15; TEMP 35.7; O2SAT 97; BMI 34.3
--- NOTE | 2020-08-05 10:48 | EDS_ITS ---
HPI History of Present Illness Chief Complaint: Other, Pain/Inj Informant: patient Narrative Narrative: 60-year-old male presents with rectal pain. He states he has had pain for several days. He is in the emergency department on Sunday had a CT of the abdomen pelvis that was negative. He was diagnosed with Covid however. Etiology of his rectal pain was unclear at that time. Patient tells me he has a history of a pilonidal cyst approximately 10 years ago. States this feels very similar. He actually points to not the anus but to his midline in the right medial buttock area. [facility] Medical History Atrial fibrillation COPD (chronic obstructive pulmonary disease) CPAP (continuous positive airway pressure) dependence Diabetes DVT (deep venous thrombosis) Hyperlipidemia Hypertension Kidney stones Sleep apnea Home Medications Lantus U-100 Insulin 40 unit SQ QHS 10/03/16 [History Last Taken 08/03/20] glimepiride 2 mg PO BID 10/03/16 [History Last Taken 08/04/20] metformin 1,000 mg PO BID 10/03/16 [History Last Taken 10/03/16 10:15] methocarbamol 500 mg PO QMONTH PRN 10/03/16 [History Last Taken Unknown] metoprolol tartrate 25 mg PO BID 10/03/16 [History Last Taken 08/04/20] simvastatin 40 mg PO QHS 10/03/16 [History Last Taken 08/03/20] losartan 25 mg PO DAILY 04/25/19 [History Last Taken 08/04/20] pantoprazole 20 mg PO DAILY 04/25/19 [History Last Taken 08/04/20] Xarelto 15 mg PO QHS #0 04/26/19 [Rx Last Taken 08/03/20] levofloxacin 750 mg PO DAILY #5 tab 04/26/19 [Rx Last Taken Unknown] guaifenesin 1,200 mg PO BID PRN PRN 08/04/20 [History Last Taken Unknown] cephalexin 500 mg PO Q6 #40 capsule 08/05/20 [Rx Last Taken Unknown] hydrocodone-acetaminophen 1 tab PO Q6H PRN PRN 3 Days #12 tablet 08/05/20 [Rx Last Taken Unknown] lidocaine 1 applic TOPICAL TID PRN #30 g 08/05/20 [Rx Last Taken Unknown] sulfamethoxazole-trimethoprim 1 tab PO BID #20 tablet 08/05/20 [Rx Last Taken Unknown] Allergy/AdvReac Type Severity Reaction Status Date / Time Penicillins Allergy Hives Verified 08/05/20 10:25 piroxicam [From Feldene] AdvReac Nausea Verified 08/05/20 10:25 Social History (Updated 08/05/20 @ 10:[address] Chandler Mejias, DO) Smoking Status: Never smoker substance use type: does not use ROS ROS ED Constitutional Constitutional ED: Denies chills or weight loss Eyes Eyes: Denies change in vision or diplopia ENT ENT ED: Denies ear pain, rhinorrhea or sore throat Cardiovascular Cardiovascular: Denies chest pain, orthopnea, palpitations or racing heartbeat Respiratory/Chest Respiratory/Chest: Denies cough, dyspnea or orthopnea Gastrointestinal Gastrointestinal: Denies abdominal pain, diarrhea, nausea or vomiting Genitourinary Genitourinary ED: Reports other Details: Rectal pain ; Denies dysuria, hematuria or urinary frequency Musculoskeletal Musculoskeletal: Denies arthralgias or myalgias Integumentary Denies abscess or rash Neurologic Neurologic: Denies headache(s) or weakness Psychiatric Psychiatric: Denies anxiety, depression, suicidal ideation or suicidal thoughts Endocrine Endocrinology: Denies polydipsia, polyphagia or polyuria Allergic/Immunologic Allergic/Immunologic ED: Denies mouth swelling, tongue swelling or urticaria EXAM Physical Exam Const Vital Signs: 08/05/20 10:23 08/05/20 10:45 Temperature 96.3 F L Temperature Source Temporal Pulse Rate 96 Respiratory Rate 15 Respiratory Effort Normal Non-Labored Respiratory Pattern Normal Blood Pressure 136/86 H Blood Pressure Mean 102 Pulse Ox 97 Oxygen Delivery Method Room Air Positive well nourished and well developed General Appearance ED: well developed HEENT Reports normocephalic, head/scalp atraumatic and moist mucous membranes Eyes PERRL and EOMs intact bilaterally Neck no lymphadenopathy, supple and no JVD Resp normal respiratory effort and clear to auscultation bilaterally Cardio regular rate, regular rhythm and no murmurs GI normal to inspection, nondistended, normoactive bowel sounds and non-tender GI Narrative: The anus appears without complication. There is an area of Palpation: soft Back/Spine no CVA tenderness and normal ROM Extremity normal to inspection General Extremety ED: Negative for edema General Extremity: Negative for edema Neuro oriented x3 and CN's II-XII intact bilaterally Sensorium / Orientation: alert Motor Exam: strength 5/5 throughout Psych mental status grossly normal Mood & Affect: Negative for depressed or tearful Skin no rashes or lesions noted and no wounds MDM MDM MDM Narrative Medical decision making narrative: Patient appears to have an early pilonidal cyst. I will write for pain medication and place him on Keflex and Bactrim. He was advised that this may worsen and he will need to return here for I&D as he has Covid. He notes understanding of this. Discharge Plan Triage Chief Complaint: Other, Pain/Inj ED Provider: Chandler Mejias Dx/Rx/DC Orders Clinical Impression: Pilonidal cyst without abscess, COVID-19 Instructions: ED Cyst Pilonidal Infec Abx Only Prescriptions: New hydrocodone-acetaminophen [hydrocodone-acetaminophen] 1 TABLET tablet 1 tab PO Q6H PRN PRN (Reason: Pain) 3 Days Qty: 12 RF: 0 sulfamethoxazole-trimethoprim [sulfamethoxazole-trimethoprim] 1 TABLET tablet 1 tab PO BID Qty: 20 RF: 0 cephalexin [cephalexin] 500 MG capsule 500 mg PO Q6 Qty: 40 RF: 0 lidocaine 4 % gel 1 applic topical TID PRN (Reason: pain) Qty: 30 RF: 0 No Action Lantus U-100 Insulin 100 UNIT/ML solution 40 unit SQ QHS RF: 0 metoprolol tartrate 25 MG tablet 25 mg PO BID RF: 0 methocarbamol 500 MG tablet 500 mg PO QMONTH PRN (Reason: pain) RF: 0 metformin 500 MG tablet 1,000 mg PO BID RF: 0 simvastatin 40 MG tablet 40 mg PO QHS RF: 0 glimepiride 2 MG tablet 2 mg PO BID RF: 0 losartan 25 MG tablet 25 mg PO DAILY RF: 0 pantoprazole 20 MG tablet 20 mg PO DAILY RF: 0 levofloxacin 750 MG tablet 750 mg PO DAILY Qty: 5 RF: 0 Xarelto 15 mg PO QHS Qty: 0 RF: 0 guaifenesin 1,200 MG tablet extended release 12hr 1,200 mg PO BID PRN PRN (Reason: Cough) RF: 0 [facility] [[facility] Provider[facility] - Activity Restrictions/Additional Instructions: As discussed this may progressed to where you would need to have incision and drainage. If that occurs he will need to return here as you have active Covid. Disposition Disposition: Home, self care
[2020-08-05 11:17] VITALS: RESP 16
== END 2020-08-05 11:17 | disposition home or self-care (01) ==
PROVIDERS: Emergency Provider Emergency Medicine
DX: L05.91 Pilonidal cyst without abscess (principal); U07.1 COVID-19
CPT/HCPCS: 99282

== ENCOUNTER 2020-08-07 14:25 | Emergency (ER) | payer OTHER, BC, SELFPAY ==
[2020-08-07 14:27] VITALS: BP 157/75; PULSE 92; RESP 26; TEMP 37.7; O2SAT 98; BMI 34.4
--- NOTE | 2020-08-07 14:57 | CT_ITS ---
We are attempting to reach an attending provider to discuss findings. An addendum with communication details will be sent when the communication is complete. HISTORY: pilonidal cyst (+ covid) EXAMINATION: CT Pelvis W/ Contrast Injection TECHNIQUE:Routine noncontrast bone CT protocol was performed of the pelvis. 2-D reformats were performed by the technologist. A radiation dose optimization technique was used for this scan. IV Contrast dosage and agent: 100mL [id number] COMPARISON: CT abdomen and pelvis 08/01/20 FINDINGS: SOFT TISSUES: Interval decompression of the posterior perirectal abscess with soft tissue gas and fatty induration in the posterior perineum bilaterally extending anteriorly towards the scrotum. BONES/JOINTS: No acute fracture or subluxation. Normal alignment. Preservation of the joint spaces. No sclerotic or destructive changes. 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 Individualized dose optimization techniques were used for this CT. at 1626 Reported and signed by: Tato Cedeno MD Electronically Signed: Tato Cedeno MD at 16:24 EDT Tel , Service support ,
--- NOTE | 2020-08-07 15:01 | EDS_ITS ---
HPI History of Present Illness Chief Complaint: Wound Informant: patient Onset/Context/Timing Onset: Days Context: Gradual Onset Current Severity: Mild Maximum Severity: Moderate Narrative Narrative: Patient presents secondary to pilonidal cyst. Patient was seen here 1 week ago today complaining of rectal pain for the past 5 days. He had a CT scan that was unremarkable at that time but did test positive for Covid. Patient was seen back in the ER 2 days ago, August 05. At that time had an area of induration on the right medial buttock consistent with early pilonidal cyst. He was placed on Bactrim and Keflex along with [place] for pain. Patient presents back today secondary to continued pain to this area. He states he has had some drainage from the area. He is unsure if he is had a fever at home. said earlier today his sat dropped to 89% on room air, he is currently in the mid to high 90s. [facility] Medical History Atrial fibrillation COPD (chronic obstructive pulmonary disease) CPAP (continuous positive airway pressure) dependence Diabetes DVT (deep venous thrombosis) Hyperlipidemia Hypertension Kidney stones Sleep apnea Home Medications Lantus U-100 Insulin 40 unit SQ QHS 10/03/16 [History Last Taken 08/03/20] glimepiride 2 mg PO BID 10/03/16 [History Last Taken 08/04/20] metformin 1,000 mg PO BID 10/03/16 [History Last Taken 10/03/16 10:15] methocarbamol 500 mg PO QMONTH PRN 10/03/16 [History Last Taken Unknown] metoprolol tartrate 25 mg PO BID 10/03/16 [History Last Taken 08/04/20] simvastatin 40 mg PO QHS 10/03/16 [History Last Taken 08/03/20] losartan 25 mg PO DAILY 04/25/19 [History Last Taken 08/04/20] pantoprazole 20 mg PO DAILY 04/25/19 [History Last Taken 08/04/20] Xarelto 15 mg PO QHS #0 04/26/19 [Rx Last Taken 08/03/20] levofloxacin 750 mg PO DAILY #5 tab 04/26/19 [Rx Last Taken Unknown] guaifenesin 1,200 mg PO BID PRN PRN 08/04/20 [History Last Taken Unknown] cephalexin 500 mg PO Q6 #40 capsule 08/05/20 [Rx Last Taken Unknown] hydrocodone-acetaminophen 1 tab PO Q6H PRN PRN 3 Days #12 tablet 08/05/20 [Rx Last Taken Unknown] lidocaine 1 applic TOPICAL TID PRN #30 g 08/05/20 [Rx Last Taken Unknown] sulfamethoxazole-trimethoprim 1 tab PO BID #20 tablet 08/05/20 [Rx Last Taken Unknown] Allergy/AdvReac Type Severity Reaction Status Date / Time Penicillins Allergy Hives Verified 08/07/20 14:32 piroxicam [From Feldene] AdvReac Nausea Verified 08/07/20 14:32 Social History Smoking Status: Never smoker substance use type: does not use ROS ROS ED Constitutional Constitutional ED: Reports fever(s), subjective and sweats; Denies chills Eyes Eyes: Denies change in vision ENT ENT ED: Denies sore throat Cardiovascular Cardiovascular: Denies chest pain Respiratory/Chest Respiratory/Chest: Reports dyspnea; Denies cough Gastrointestinal Gastrointestinal: Reports other Details: Rectal pain ; Denies abdominal pain, diarrhea, nausea or vomiting Genitourinary Genitourinary ED: Denies dysuria Musculoskeletal Musculoskeletal: Denies back pain Integumentary Denies rash Neurologic Neurologic: Denies headache(s) or weakness Psychiatric Psychiatric: Denies anxiety or depression Endocrine Endocrinology: Denies polydipsia or polyuria Allergic/Immunologic Allergic/Immunologic ED: Denies urticaria EXAM Physical Exam Const Vital Signs: 08/07/20 14:27 Temperature 99.9 F H Temperature Source Oral Pulse Rate 92 Respiratory Rate 26 H Blood Pressure 157/75 H Blood Pressure Mean 102 Pulse Ox 98 Oxygen Delivery Method Room Air Positive well nourished and well developed General Appearance ED: well developed HEENT Reports moist mucous membranes Eyes PERRL and EOMs intact bilaterally Neck supple Chest Wall inspection of chest normal and palpation of chest normal Resp normal respiratory effort and clear to auscultation bilaterally Cardio regular rate and regular rhythm GI normal to inspection, nondistended, normoactive bowel sounds and non-tender GI Narrative: Rectal examination reveals firm induration along the medial aspect of the right buttock. At the superior aspect of this there is an opening measuring approximate 1/2 cm in diameter with drainage of yellow fluid. No evidence of cellulitis. Palpation: soft Extremity normal to inspection Neuro oriented x3 Sensorium / Orientation: alert MDM MDM MDM Narrative Medical decision making narrative: Lab work was obtained. CT scan of the pelvis with IV contrast is ordered. Lab Data Attestation: I reviewed the patient's lab results. Labs: Laboratory Results - last 24 hr 08/07/20 08/07/20 15:24 15:24 WBC 12.3 H RBC 4.66 Hgb 13.8 Hct 40.9 MCV 87.8 MCH 29.6 MCHC 33.7 RDW Std Deviation 41.8 RDW Coeff of Keshia 12.9 Plt Count 150 MPV 10.0 Immature Gran % (Auto) 0.900 Neut % (Auto) 90.5 H Lymph % (Auto) 5.2 L Nelson % (Auto) 3.2 Eos % (Auto) 0.0 Baso % (Auto) 0.2 Absolute Neuts (auto) 11.1 H Absolute Lymphs (auto) 0.64 L Nucleated RBC % 0 Sodium 127 L Potassium 3.7 Chloride 93 L Carbon Dioxide 26.0 Anion Gap 8 BUN 33 H Creatinine 1.73 H Estim Creat Clear Calc 50.46 Est GFR (MDRD) Af Amer 52 L Est GFR (MDRD) Non-Af 43 L BUN/Creatinine Ratio 19.1 Glucose 375 H Calcium 8.2 L Radiography Diagnostic Testing: Radiology Impression Pelvis CT 08/07/20 14:57 IMPRESSION: Interval decompression of a posterior perirectal abscess with 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 Individualized dose optimization techniques were used for this CT. 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 Individualized dose optimization techniques were used for this CT. at 1626 Reported and signed by: Tato Cedeno MD N.B. : The above information has been verbally conveyed by Tato Cedeno MD to Marnie Villatoro MD, on 08/07/2020 16:34:26 (ET). Electronically Signed: Tato Cedeno MD at 16:24 EDT Tel , Service support , EKG Initial EKG: Attestation: I personally reviewed and interpreted this EKG as follows: Interpretation: Atrial Fibrillation (A. fib RVR with ventricular rate of 134. No significant ST change.) Treatment and Re-Evaluation Comments:: Patient is noted to have an increase in his creatinine from 1.11-1.73 over the past week. 500 cc IV fluid boluses ordered. CT scan of the pelvis reveals evidence of Parag's gangrene. Patient does have a documented allergy to penicillin. He has ordered vancomycin, clindamycin, ciprofloxacin. I spoke with surgery here who does not feel comfortable. Patient discussed with [facility] for transfer. Discharge Plan Triage Chief Complaint: Wound ED Provider: Marnie Villatoro Dx/Rx/DC Orders Clinical Impression: Parag gangrene, COVID-19 Prescriptions: No Action Lantus U-100 Insulin 100 UNIT/ML solution 40 unit SQ QHS RF: 0 metoprolol tartrate 25 MG tablet 25 mg PO BID RF: 0 methocarbamol 500 MG tablet 500 mg PO QMONTH PRN (Reason: pain) RF: 0 metformin 500 MG tablet 1,000 mg PO BID RF: 0 simvastatin 40 MG tablet 40 mg PO QHS RF: 0 glimepiride 2 MG tablet 2 mg PO BID RF: 0 losartan 25 MG tablet 25 mg PO DAILY RF: 0 pantoprazole 20 MG tablet 20 mg PO DAILY RF: 0 levofloxacin 750 MG tablet 750 mg PO DAILY Qty: 5 RF: 0 Xarelto 15 mg PO QHS Qty: 0 RF: 0 guaifenesin 1,200 MG tablet extended release 12hr 1,200 mg PO BID PRN PRN (Reason: Cough) RF: 0 hydrocodone-acetaminophen [hydrocodone-acetaminophen] 1 TABLET tablet 1 tab PO Q6H PRN PRN (Reason: Pain) 3 Days Qty: 12 RF: 0 sulfamethoxazole-trimethoprim [sulfamethoxazole-trimethoprim] 1 TABLET tablet 1 tab PO BID Qty: 20 RF: 0 cephalexin [cephalexin] 500 MG capsule 500 mg PO Q6 Qty: 40 RF: 0 lidocaine 4 % gel 1 applic topical TID PRN (Reason: pain) Qty: 30 RF: 0 [facility] [facility] [Primary [facility] Provider] - Disposition Disposition: Acute Care Hospital Discharge Location: [facility]
[2020-08-07 15:32] LABS: Absolute Lymphocyte Count 0.64 X10^3/uL (0.83-4.51); Absolute Neutrophil Count 11.1 X10^3/uL (2.0-7.7); Basophil# 0.03 X10^3/uL; Basophil% 0.2 % (0-1); Hematocrit 40.9 % (40-54); Hemoglobin 13.8 g/dL (13.0-16.5); Lymphocyte # 0.64 X10^3/ul (0.83-4.51); Lymphocyte % 5.2 % (19-41); Mean Corp Hgb Conc 33.7 g/dL (32-36); Mean Corpuscular Hgb 29.6 pg (27.0-32.0); Mean Corpuscular Volume 87.8 fL (80-94); Monocyte# 0.39 X10^3/uL; Monocyte% 3.2 % (0-10); NRBC Flagged by Analyzer 0 % (0-5); Neutrophil # 11.12 X10^3/uL (2.7-7.7); Neutrophil % 90.5 % (47-70); Platelet Count 150 K/mm3 (150-450); RBC Distribution Width CV 12.9 % (11.6-14.6); RBC Distribution Width SD 41.8 fl (35.1-43.9); Red Blood Count 4.66 M/mm3 (4.6-6.2); White Blood Count 12.3 K/mm3 (4.4-11.0)
[2020-08-07 15:51] LABS: Anion Gap 8 (5-15); BUN 33 mg/dL (7-18); BUN/Creat Ratio 19.1 RATIO (10-20); Calcium,Total 8.2 mg/dL (8.5-10.1); Chloride 93 mmol/L (98-107); Creatinine, Serum 1.73 mg/dL (0.70-1.30); EST Glomerular Filtration Rate 43 mL/min (>60); Est Glom Filt Rate - Afr Amer 52 mL/min (>60); Estimated Creatinine Clearance 50.46 ml/min; Glucose 375 mg/dL (74-106); Potassium 3.7 mmol/L (3.5-5.1); Sodium Level 127 mmol/L (136-145)
--- NOTE | 2020-08-07 16:14 | EKG12_ITS ---
Test Reason : CYST Blood Pressure : / mmHG Vent. Rate : 134 BPM Atrial Rate : 441 BPM P-R Int : 000 ms QRS Dur : 096 ms QT Int : 280 ms P-R-T Axes : 000 032 -43 degrees QTc Int : 418 ms Atrial fibrillation with rapid ventricular response Nonspecific T wave abnormality Abnormal ECG Confirmed by ELY LEZAMA, BARBARA ([id number]), photography editor ALYSSA PARRISH ([id number]) on 08/10/2020 10:06:55 AM Referred By: KYLEE Confirmed By:BARBARA GRAVES MD
--- NOTE | 2020-08-07 16:58 | NURSING ---
CALLED [facility]. LET BED CONTROL KNOW WE ARE TRANSFERRING PATIENT.
--- NOTE | 2020-08-07 16:59 | NURSING ---
CALLED [facility] TO START TRANSFER FAXED FACE SHEET AND CT RESULTS
--- NOTE | 2020-08-07 17:20 | NURSING ---
CALLED [facility], ETA IS 75 TO 90 MIN
[2020-08-07] MEDS: Ciprofloxacin 400 MG/200 ML BAG 200 MG IV (17:30)
[2020-08-07 18:05] LABS: Lactic Acid 2.1 mmol/L (0.4-1.9)
[2020-08-07 18:06] VITALS: BP 114/74; PULSE 129; PULSE 138; RESP 31; TEMP 38.2; O2SAT 95; O2SAT 96
[2020-08-07 18:08] VITALS: BP 114/74; PULSE 143; RESP 30; TEMP 38.2; O2SAT 95
[2020-08-07] MEDS: Acetaminophen 500 MG Tablet 1000 MG PO (18:22)
[2020-08-07] MEDS: 0.9% Normal Saline 1,000 ML 999 ML IV (18:23)
[2020-08-07] MEDS: Metoprolol Tartrate 25 MG Tablet PO (18:40)
[2020-08-07 21:30] LABS: Reflex Lactate? Y
== END 2020-08-07 19:09 | disposition short-term general hospital (02) ==
PROVIDERS: Emergency Provider Emergency Medicine
DX: N49.3 Fournier gangrene (principal); U07.1 COVID-19; E11.9 Type 2 diabetes mellitus without complications; E78.5 Hyperlipidemia, unspecified; I10 Essential (primary) hypertension; I48.91 Unspecified atrial fibrillation; Z79.01 Long term (current) use of anticoagulants; Z79.84 Long term (current) use of oral hypoglycemic drugs; Z79.899 Other long term (current) drug therapy
CPT/HCPCS: 72193; 80048; 83605; 85025; 87040; 93005; 96365; 96367; 99285; J7030; J7040; J7050; Q9967; A4216; J0744

== ENCOUNTER 2020-08-15 00:49 | Emergency (ER) | payer OTHER, BC, SELFPAY ==
[2020-08-15] VITALS (12 sets, daily range): BP systolic 125–159; BP diastolic 69–118; PULSE 101–149; RESP 20–35; TEMP 37.6–38.8; O2SAT 93–97; BMI 34.3
--- NOTE | 2020-08-15 01:14 | CT_ITS ---
STUDY: CTA CHEST REASON FOR EXAM: Male, 60 years old. r/o pe RADIATION DOSAGE (If Supplied By Facility): CTDIvol = ( 21.54 ) mGy, DLP = ( 884.78 ) mGycm TECHNIQUE: The examination was performed with the intravenous administration of IV 100mL Isovue-370. Post-processing of the angiographic images was performed, with multiplanar reformation and 3D reconstruction. Individualized dose optimization techniques were used for this CT. COMPARISON: None. FINDINGS: Patient motion artifact limits evaluation for pulmonary embolism. There is no central pulmonary embolism identified. No proximal segmental pulmonary artery embolism. Further evaluation is limited by patient''s motion artifact. Normal thoracic aorta and visualized great vessels. There is no demonstrated aortic dissection. Cardiomegaly. Coronary artery calcifications. Atelectasis/scarring within the lungs. There is diffuse groundglass opacities/nodularities within the lungs bilaterally. There are a few scattered calcified pulmonary nodules likely granulomas. Central airway appears patent. Concerning for developing consolidation within the lower lobes. Small bilateral pleural effusions. There is no pneumothorax. Enlarged mediastinal hilar lymph nodes measuring up to 1.9 cm in short axis. There is some calcified nodes present likely from prior granulomatous disease. There are degenerative changes of thoracic spine. T7 compression deformity with adjacent degenerative changes likely chronic. Please see dedicated CT abdomen and pelvis for abdominal findings. CT/CTA Chest W/WO Contrast IMPRESSION: Patient motion artifact limits evaluation for pulmonary embolism. There is no central pulmonary embolism identified. No proximal segmental pulmonary artery embolism. Further evaluation is limited by patient''s motion artifact. Cardiomegaly. Small bilateral pleural effusions. There is diffuse groundglass opacities/nodularities within the lungs bilaterally. There are a few scattered calcified pulmonary nodules likely granulomas. Central airway appears patent. Concerning for developing consolidation within the lower lobes. Findings likely related to patient''s known Covid 19. However recommend follow-up imaging 4-6 weeks to ensure resolution and to exclude any underlying neoplasm. Likely reactive mediastinal/hilar lymph nodes. However recommend follow-up to ensure resolution with above-mentioned CT scan. Evidence of prior granulomatous disease. Other findings as above. Electronically Signed: Satinder Hameed MD at 4:00 EDT Tel , Service support ,
--- NOTE | 2020-08-15 01:15 | CT_ITS ---
STUDY: CT ABDOMEN AND PELVIS WITH CONTRAST REASON FOR EXAM: Male, 60 years old. recent perirectal abscess RADIATION DOSAGE (If Supplied By Facility): CTDIvol = ( 23.98 ) mGy, DLP = ( 1682.25 ) mGycm TECHNIQUE: Transaxial images were obtained from the dome of the diaphragm to the symphysis pubis without oral contrast. IV 100mL Isovue-370 was administered. Sagittal and coronal images were reconstructed. Individualized dose optimization techniques were used for this CT. COMPARISON: CT pelvis 08/07/2020 FINDINGS: Please see dedicated CT scan of the chest for chest findings. Normal liver. Normal gallbladder and extrahepatic biliary system. There are multiple benign calcified granulomata of the spleen. Normal pancreas. Normal bilateral adrenal glands. Normal right kidney. Normal left kidney. Normal visualized stomach. Normal small intestine. Normal colon. The appendix is visualized and appears normal. There is diffuse atherosclerotic calcification of the abdominal aorta, without a demonstrated aneurysm. Normal inferior vena cava. Normal retroperitoneum. Normal urinary bladder. Enlarged prostate correlate with PSA values and physical exam on a nonemergent basis. There is soft tissue stranding throughout the perineum. There is gas within the perineum which has decreased from prior study. There is a surgical drain within the perineum. There is decreasing size of the posterior perirectal abscess and gas. Small fat-containing bilateral inguinal hernias. Small fat-containing umbilical hernia. There are diffuse degenerative changes of the visualized lumbar spine. Mild retrolisthesis L5 on S1. CT/Abdomen/Pelvis W IV Cont ONLY IMPRESSION: Compared to prior CT scan there is decreasing size of the posterior perirectal abscess. There remains stranding and gas in the peroneal region compatible with known Parag''s gas gangrene. There is decreasing gas and soft tissue stranding throughout the perineum. There has been placement of a surgical drain. Evidence of prior granulomatous disease. No CT evidence for acute diverticulitis or appendicitis. Other findings as above. Electronically Signed: Satinder Hameed MD at 3:33 EDT Tel , Service support ,
--- NOTE | 2020-08-15 01:15 | EKG12_ITS ---
Test Reason : A-FIB Blood Pressure : / mmHG Vent. Rate : 155 BPM Atrial Rate : 159 BPM P-R Int : 000 ms QRS Dur : 084 ms QT Int : 254 ms P-R-T Axes : 000 032 -52 degrees QTc Int : 408 ms Atrial fibrillation with rapid ventricular response Nonspecific T wave abnormality Abnormal ECG Confirmed by SENAIT LEZAMA, ENDY ([id number]), editor managing newspaper ALYSSA PARRISH ([id number]) on 08/19/2020 9:27:53 AM Referred By: LUDIVINA Confirmed By:ENDY SAPP MD
[2020-08-15 01:21] LABS: Absolute Lymphocyte Count 0.31 X10^3/uL (0.83-4.51); Basophil# 0.07 X10^3/uL; Basophil% 0.4 % (0-1); Eosinophil# 0.11 X10^3/uL; Eosinophils% 0.7 % (0-5); Hematocrit 41.6 % (40-54); Hemoglobin 13.7 g/dL (13.0-16.5); Lymphocyte # 0.31 X10^3/ul (0.83-4.51); Lymphocyte % 1.9 % (19-41); Mean Corp Hgb Conc 32.9 g/dL (32-36); Mean Corpuscular Hgb 29.5 pg (27.0-32.0); Mean Corpuscular Volume 89.7 fL (80-94); Mean Platelet Vol. 8.9 fl (6.2-12.0); Monocyte# 0.37 X10^3/uL; Monocyte% 2.3 % (0-10); NRBC Flagged by Analyzer 0 % (0-5); Neutrophil % 93.1 % (47-70); POSITIVE DIFFERENTIAL YES; Platelet Count 405 K/mm3 (150-450); RBC Distribution Width CV 13.4 % (11.6-14.6); RBC Distribution Width SD 43.8 fl (35.1-43.9); Red Blood Count 4.64 M/mm3 (4.6-6.2); White Blood Count 16.1 K/mm3 (4.4-11.0)
[2020-08-15 01:24] LABS: Differential Indicated SCAN CRITERIA MET
--- NOTE | 2020-08-15 01:39 | EX.ED.DYSGE1 ---
HPI History of Present Illness Chief Complaint: Abscess Narrative Narrative: 60-year-old male presenting with fever, palpitations, and shortness of breath. Patient was recently discharged from [facility] after admission for perirectal abscess. He was sent home after excision and debridement of the perineum and perirectal region on Bactrim. He denies increasing pain to his buttocks. States he started to not feel well today and developed a fever. He was also recently diagnosed with Covid on 08/01/2020. Prior similar symptoms: Yes Recent Illness/Hospitalization: Yes PFSH PFS Medical History Atrial fibrillation COPD (chronic obstructive pulmonary disease) CPAP (continuous positive airway pressure) dependence Diabetes DVT (deep venous thrombosis) Hyperlipidemia Hypertension Kidney stones Sleep apnea Home Medications Lantus U-100 Insulin 10 unit SQ QHS 10/03/16 [History Last Taken 08/03/20] metformin 1,000 mg PO BID 10/03/16 [History Last Taken 10/03/16 10:15] metoprolol tartrate 50 mg PO TID 10/03/16 [History Last Taken 08/04/20] simvastatin 80 mg PO QHS 10/03/16 [History Last Taken 08/03/20] losartan 100 mg PO DAILY 04/25/19 [History Last Taken 08/04/20] sulfamethoxazole-trimethoprim 1 tab PO BID #20 tablet 08/05/20 [Rx Last Taken Unknown] ergocalciferol (vitamin D2) 50,000 unit PO Q30D 08/15/20 [History Last Taken Unknown] gabapentin 600 mg PO DAILY 08/15/20 [History Last Taken Unknown] glipizide 5 mg PO BID 08/15/20 [History Last Taken Unknown] hydrochlorothiazide 25 mg PO DAILY 08/15/20 [History Last Taken Unknown] rivaroxaban [Xarelto] 20 mg PO DAILY 08/15/20 [History Last Taken Unknown] Allergy/AdvReac Type Severity Reaction Status Date / Time Penicillins Allergy Hives Verified 08/07/20 14:32 piroxicam [From Feldene] AdvReac Nausea Verified 08/07/20 14:32 Social History Smoking Status: Never smoker substance use type: does not use ROS ROS ED Constitutional Constitutional ED: Reports chills and fever(s) Eyes Eyes: Denies change in vision ENT ENT ED: Denies rhinorrhea or sore throat Cardiovascular Cardiovascular: Reports palpitations; Denies chest pain Respiratory/Chest Respiratory/Chest: Reports dyspnea; Denies cough Gastrointestinal Gastrointestinal: Denies abdominal pain, diarrhea, nausea or vomiting Genitourinary Genitourinary ED: Denies dysuria Musculoskeletal Musculoskeletal: Denies myalgias Integumentary Denies rash Neurologic Neurologic: Denies headache(s) Psychiatric Psychiatric: Denies suicidal thoughts EXAM Physical Exam Const Vital Signs: 08/15/20 00:50 08/15/20 00:58 08/15/20 03:31 Temperature 101.7 F H 101.7 F H 99.8 F H Temperature Source Oral Oral Oral Pulse Rate 136 H 136 H 117 H Respiratory Rate 35 H 35 H 28 H Blood Pressure 141/118 H 141/118 H 125/69 H Blood Pressure Mean 125 125 87 Blood Pressure Position Blood Pressure Location Pulse Ox 93 93 96 Oxygen Delivery Method Room Air 08/15/20 03:32 08/15/20 04:14 08/15/20 04:22 Temperature 101.3 F H Temperature Source Oral Pulse Rate 149 H 135 H Respiratory Rate 28 H 28 H 32 H Blood Pressure 159/112 H 159/112 H Blood Pressure Mean 127 127 Blood Pressure Position Semi-Fowlers Blood Pressure Location Right Arm Pulse Ox 97 95 Oxygen Delivery Method Room Air Room Air Positive well nourished and well developed General Appearance ED: well developed HEENT Reports normocephalic and head/scalp atraumatic Eyes PERRL and EOMs intact bilaterally Neck supple General: Negative for tenderness Chest Wall inspection of chest normal Resp normal respiratory effort and clear to auscultation bilaterally Cardio Rate: tachycardic Rhythm: abnormal rhythm irregularly irregular GI non-tender and non-distended GI Narrative: perirectal drain loops in place Palpation: soft; Negative for guarding or rebound tenderness present no CVA tenderness Extremity normal to inspection Neuro oriented x3 Sensorium / Orientation: alert Psych mental status grossly normal MDM MDM MDM Narrative Medical decision making narrative: Patient was given IV fluids, Cardizem, Tylenol. Blood cultures were sent. WBC 16.1, lactic acid 2.3. Repeat heart rate 105. CT abdomen pelvis shows decreasing size of perirectal abscess and soft tissue stranding. CTA chest shows motion artifact, groundglass opacities consistent with Covid 19. Patient's temperature is down to 99. His heart rate had gone down to 100 but is back up to 130. He was started on Cardizem drip. Discussed with [facility] for transfer Lab Data Attestation: I reviewed the patient's lab results. Labs: Laboratory Results - last 24 hr 08/15/20 08/15/20 08/15/20 01:07 01:07 01:07 WBC 16.1 H RBC 4.64 Hgb 13.7 Hct 41.6 MCV 89.7 MCH 29.5 MCHC 32.9 RDW Std Deviation 43.8 RDW Coeff of Keshia 13.4 Plt Count 405 MPV 8.9 Immature Gran % (Auto) 1.600 H Neut % (Auto) 93.1 H Lymph % (Auto) 1.9 L Archer % (Auto) 2.3 Eos % (Auto) 0.7 Baso % (Auto) 0.4 Absolute Neuts (auto) 15.0 H Absolute Lymphs (auto) 0.31 L Nucleated RBC % 0 Sodium 133 L Potassium 4.1 Chloride 99 Carbon Dioxide 25.0 Anion Gap 9 BUN 10 Creatinine 1.12 Estim Creat Clear Calc 77.95 Est GFR (MDRD) Af Amer 86 Est GFR (MDRD) Non-Af 71 BUN/Creatinine Ratio 8.9 L Glucose 289 H Lactic Acid 2.3 H* Calcium 9.2 Troponin I < 0.015 Radiography Diagnostic Testing: Radiology Impression Chest CTA 08/15/20 01:14 IMPRESSION: Patient motion artifact limits evaluation for pulmonary embolism. There is no central pulmonary embolism identified. No proximal segmental pulmonary artery embolism. Further evaluation is limited by patient''s motion artifact. Cardiomegaly. Small bilateral pleural effusions. There is diffuse groundglass opacities/nodularities within the lungs bilaterally. There are a few scattered calcified pulmonary nodules likely granulomas. Central airway appears patent. Concerning for developing consolidation within the lower lobes. Findings likely related to patient''s known Covid 19. However recommend follow-up imaging 4-6 weeks to ensure resolution and to exclude any underlying neoplasm. Likely reactive mediastinal/hilar lymph nodes. However recommend follow-up to ensure resolution with above-mentioned CT scan. Evidence of prior granulomatous disease. Other findings as above. Electronically Signed: Satinder Hameed MD at 4:00 EDT Tel , Service support , Abdomen/Pelvis CT 08/15/20 01:15 IMPRESSION: Compared to prior CT scan there is decreasing size of the posterior perirectal abscess. There remains stranding and gas in the peroneal region compatible with known Parag''s gas gangrene. There is decreasing gas and soft tissue stranding throughout the perineum. There has been placement of a surgical drain. Evidence of prior granulomatous disease. No CT evidence for acute diverticulitis or appendicitis. Other findings as above. Electronically Signed: Satinder Hameed MD at 3:33 EDT Tel , Service support , EKG Initial EKG: Attestation: I personally reviewed and interpreted this EKG as follows: Interpretation: Atrial Fibrillation Comments: A. fib with RVR rate of 155 Discharge Plan Triage Chief Complaint: Abscess ED Provider: [facility] Hinton Dx/Rx/DC Orders Clinical Impression: Atrial fibrillation with RVR, Acute febrile illness, Abscess, perirectal, COVID-19 Prescriptions: No Action Lantus U-100 Insulin 100 UNIT/ML solution 10 unit SQ QHS RF: 0 metoprolol tartrate 25 MG tablet 50 mg PO TID RF: 0 metformin 500 MG tablet 1,000 mg PO BID RF: 0 simvastatin 40 MG tablet 80 mg PO QHS RF: 0 losartan 25 MG tablet 100 mg PO DAILY RF: 0 sulfamethoxazole-trimethoprim [sulfamethoxazole-trimethoprim] 1 TABLET tablet 1 tab PO BID Qty: 20 RF: 0 Xarelto 20 mg tablet 20 mg PO DAILY RF: 0 gabapentin 600 mg Tablet 600 mg PO DAILY RF: 0 hydrochlorothiazide 25 mg Tablet 25 mg PO DAILY RF: 0 ergocalciferol (vitamin D2) 1,250 mcg (50,000 unit) capsule 50,000 unit PO Q30D RF: 0 glipizide 5 mg tablet 5 mg PO BID RF: 0 [facility] Provider] - Disposition Disposition: Acute Care Hospital Discharge Location: [facility]
[2020-08-15 01:44] LABS: Anion Gap 9 (5-15); BUN 10 mg/dL (7-18); BUN/Creat Ratio 8.9 RATIO (10-20); Calcium,Total 9.2 mg/dL (8.5-10.1); Chloride 99 mmol/L (98-107); Creatinine, Serum 1.12 mg/dL (0.70-1.30); EST Glomerular Filtration Rate 71 mL/min (>60); Est Glom Filt Rate - Afr Amer 86 mL/min (>60); Estimated Creatinine Clearance 77.95 ml/min; Glucose 289 mg/dL (74-106); Potassium 4.1 mmol/L (3.5-5.1); Sodium Level 133 mmol/L (136-145)
[2020-08-15] MEDS: dilTIAZem 25 MG/5 ML Vial 20 MG IV BOLUS (01:45)
[2020-08-15] MEDS: 0.9% Normal Saline 1,000 ML 1000 ML IV (01:45)
[2020-08-15 01:48] LABS: Lactic Acid 2.3 mmol/L (0.4-1.9)
[2020-08-15] MEDS: 0.9% Normal Saline 1,000 ML 999 ML IV ×2 (03:36→04:47)
--- NOTE | 2020-08-15 04:18 | ED.RN ---
[facility] AND [facility] NOT [facility], AND THEY WONT KNOW IF THEY HAVE ANY UNTIL AFTER 0800 THIS MORNING.
--- NOTE | 2020-08-15 04:57 | ED.RN ---
CALL[facility], ETA IS 3 HOURS.
[2020-08-15 05:17] LABS: Reflex Lactate? Y
[2020-08-15 06:15] LABS: Lactic Acid 2.6 mmol/L (0.4-1.9)
[2020-08-15] MEDS: Acetaminophen 500 MG Tablet 1000 MG PO (06:16)
== END 2020-08-15 08:42 | disposition short-term general hospital (02) ==
PROVIDERS: Emergency Provider Emergency Medicine
DX: I48.91 Unspecified atrial fibrillation (principal); R50.9 Fever, unspecified; K61.1 Rectal abscess; U07.1 COVID-19; E11.9 Type 2 diabetes mellitus without complications; E78.5 Hyperlipidemia, unspecified; Z79.899 Other long term (current) drug therapy; Z79.4 Long term (current) use of insulin
CPT/HCPCS: 71275; 74177; 80048; 83605; 84484; 85025; 87040; 93005; 96361; 96365; 96375; 99285; J7030; Q9967; A4216